=== PATIENT | female | born 1975 | race Hispanic/Latino ===

== ENCOUNTER → 2019-10-22 | Outpatient (CLI) | payer OTHER ==
--- NOTE | 2019-10-25 15:12 | MRI ---
EXAM DESCRIPTION: Lumbar Spine w/o Contrast : Magnetic Resonance Imaging. CLINICAL HISTORY: BACK PAIN COMPARISON: LUMBAR TECHNIQUE: Multiplanar, multiple standard sequences, non contrast MRI, lumbar spine. FINDINGS: L5-S1: The disc is well visualized on axial T2 series 501, image 3. Disc is desiccated with disc space loss. Posterior midline protrusion of the disc 7.5 mm. Inferior extrusion below the disc space impressing on the right S1 nerve, and also impressing on the thecal sac and narrowing the right subarticular recess. Degenerative hypertrophy of the bilateral posterior flavum ligaments and facet joints (posterior elements). Bilaterally shortened pedicles. AP canal diameter 8.3 mm. Moderate right foraminal narrowing with bulging disc. Mild left foraminal narrowing. L4-L5: Disc desiccation minimal disc space loss. Posterior midline hyperintense T2 weighted annular fissure abutting the thecal sac. Bilaterally shortened pedicles. Minimal degenerative hypertrophy of the posterior elements. AP canal diameter 9 mm. L3-L4: Disc degeneration and minimal anterior bulging but no posterior bulging. Bilateral shortened pedicles. Degenerative hypertrophy of the posterior elements. Minimal narrowing of the transverse canal. AP canal diameter 11.6 mm. Minimal disc bulge into the bilateral foramina with mild narrowing. L2-L3: Normal signal in the disc with disc space preserved. Minimal hypertrophy of the posterior elements. Bilaterally shortened pedicles. AP canal diameter is 12 mm. Bilateral foramina are patent. L1-L2: Normal signal in the disc with disc space preserved. No posterior bulging. Mild bilateral pedicle shortening. Minimal thickening of the posterior ligaments. AP canal diameter 13 mm. Conus terminates posterior to L1. T12-L1: Normal signal in the disc with disc space preserved. Posterior elements unremarkable. Canal and foramina are patent. No scoliosis. Paravertebral soft tissues negative.. Distal cord normal signal and caliber. Normal marrow signal in the remaining vertebral bodies and the posterior elements. Vertebral bodies are not compressed at any level. IMPRESSION: 1. Herniated L5-S1 disc impressing on the thecal sac and extruding slightly inferiorly and possibly impinging the descending right S1 nerve above the lateral recess. Shortened pedicles. Central canal stenosis 2. Posterior midline bulge of the L4-L5 disc which is desiccated with annular fissure. Shortened pedicles. Multifactorial mild central canal stenosis. 3. L3-L4 disc desiccation with significant abnormalities in the remaining discs. Bilaterally shortened pedicles and degenerative hypertrophy of the posterior elements contributing to canal narrowing at other levels. Electronically signed by: Sarkis Cabral MD 10/25/2019 3:[address] [facility]
== END ==
LOC: MRI 12:50
PROVIDERS: ATTEND Family Medicine
DX: M51.27 Other intervertebral disc displacement, lumbosacral region (principal); M51.86 Other intervertebral disc disorders, lumbar region; M51.36 Other intervertebral disc degeneration, lumbar region; M48.061 Spinal stenosis, lumbar region without neurogenic claudication